=== PATIENT | female | born 1960 | race Caucasian/White ===

== ENCOUNTER 2022-08-31 16:04 | Emergency (ER) | payer BC, SELFPAY ==
[2022-08-31 16:18] VITALS: BP 135/64; PULSE 92; RESP 18; TEMP 37.6; O2SAT 98
[2022-08-31 17:44] LABS: Add Urine Microscopic? YES; Appearance Urine Cloudy (Clear); Bilirubin Urine Negative (Negative); Blood Urine 3+ (Negative); Color Urine Red (Yellow); Glucose Urine UA Negative (Negative); Ketones Urine Negative (Negative); Leukocyte Esterase Ur 1+ LEU/UL (Negative); Nitrate Urine Negative (Negative); Protein Urine 3+ mg/dL (Negative); Urobilinogen Urine 0.2 mg/dL (<2.0)
[2022-08-31 17:57] LABS: Mucus Urine Rare /lpf; RBC Urine >75 /hpf (0-2); WBC Urine >75 /hpf
--- NOTE | 2022-08-31 18:23 | WPDEDEXPGENP ---
HPI - General Ped General Chief complaint: Urogenital-Female Stated complaint: left back pain Time Seen by Provider: 08/31/22 16:54 History of Present Illness HPI narrative: 62-year-old female history of interstitial cystitis presents to the emergency room for evaluation of dysuria, suprapubic pain, and urinary urgency and frequency, left flank pain. Patient states that she noticed gross hematuria earlier today, and left flank pain. Patient states that this is different than her interstitial cystitis. Patient denies fever, denies tachycardia Related Data Allergies Allergy/AdvReac Type Severity Reaction Status Date / Time lamotrigine [From Lamictal] Allergy Hives Verified 08/31/22 17:37 Penicillins Allergy Hives Verified 08/31/22 17:37 Pediatric Review of Systems Review of Systems: CONSTITUTIONAL: Denies fever, chills, or sweats. EYES: Denies visual changes, redness, or discharge. ENT: Denies rhinorrhea, congestion, sore throat, or otalgia. CARDIOVASCULAR: Denies chest pain, palpitations, or edema. RESPIRATORY: Denies cough or dyspnea. GASTROINTESTINAL: Denies abdominal pain, nausea, vomiting GENITOURINARY: Reports dysuria and hematuria. SKIN: Denies rash or itching. MUSCULOSKELETAL: Reports left lower back pain NEUROLOGIC: Denies headache, numbness, dizziness, or weakness. PSYCHIATRIC: Denies anxiety or depression. Pediatric Exam Narrative: Physical exam: GENERAL: Well-appearing, well-nourished, no physical limitations, and in no acute distress. HEAD: Normocephalic, atraumatic. EYES: Conjunctivae normal, PERRLA and EOMI. CHEST: Clear to auscultation. No respiratory distress. No wheezes rales or rhonchi. HEART: Regular rate and rhythm. No murmur heard. Normal peripheral pulses. ABDOMEN: Soft, suprapubic tenderness, nondistended, normal active bowel sounds. : Normal external male/female exam. BACK: Left CVA tenderness EXTREMITIES: Normal range of motion. No edema. No clubbing or cyanosis SKIN: Warm, dry, no rash. No noted wounds NEURO: No focal deficits. Alert and oriented x3. MAEW. CN's II-XI intact bilaterally, normal gait PSYCH: Cooperative. Normal mood and affect. Course Vital Signs Vital signs: Vital Signs Temperature 37.6 C 08/31/22 16:18 Pulse Rate 92 08/31/22 16:18 Respiratory Rate 18 08/31/22 16:18 Blood Pressure 135/64 08/31/22 16:18 Pulse Oximetry 98 08/31/22 16:18 Temperature 37.6 C 08/31/22 16:18 Pulse Rate 92 08/31/22 16:18 Respiratory Rate 18 08/31/22 16:18 Blood Pressure 135/64 08/31/22 16:18 Pulse Oximetry 98 08/31/22 16:18 Medical Decision Making Vital Signs Vital Signs: Vital Signs Temperature 37.6 C 08/31/22 16:18 Pulse Rate 92 08/31/22 16:18 Respiratory Rate 18 08/31/22 16:18 Blood Pressure 135/64 08/31/22 16:18 Pulse Oximetry 98 08/31/22 16:18 Temperature 37.6 C 08/31/22 16:18 Pulse Rate 92 08/31/22 16:18 Respiratory Rate 18 08/31/22 16:18 Blood Pressure 135/64 08/31/22 16:18 Pulse Oximetry 98 08/31/22 16:18 Lab Data Labs: Lab Results 08/31/22 Range/Units 17:34 Urine Color Red H (Yellow) Urine Appearance Cloudy H (Clear) Urine pH 6.0 (5.0-9.0) Ur Specific [place] 1.020 (1.001-1.035) Urine Protein 3+ H (Negative) mg/dL Urine Glucose (UA) Negative (Negative) mg/dL Urine Ketones Negative (Negative) mg/dL Ur Blood (Man) 3+ H (Negative) Urine Nitrate Negative (Negative) Urine Bilirubin Negative (Negative) Urine Urobilinogen 0.2 (<2.0) mg/dL Leukocyte Esterase Rfl 1+ H (Negative) NEFTALI/UL Urine RBC >75 H (0-2) /hpf Urine WBC >75 H /hpf Urine Mucus Rare /lpf Urine Characteristics Cloudy Discharge Plan Discharge Clinical Impression: Urinary tract infection Patient Disposition: Home, Self-Care Condition: Stable Instructions: Antibiotic Form, Urinary Tract Infectio
[2022-08-31] MEDS: cefTRIAXone 1 GM VIAL IM (18:47)
[2022-08-31] MEDS: LIDOCAINE HCL 1% LOCAL INJ 20 ML VIAL (18:48)
== END 2022-08-31 19:04 | disposition home or self-care (01) ==
PROVIDERS: Emergency Provider Nurse Practitioner Family
DX: N39.0 Urinary tract infection, site not specified (principal)
CPT/HCPCS: 81001; 87077; 87086; 87147; 87181; 87186; 96372; 99283; J0696

== ENCOUNTER 2022-09-15 08:17 | Outpatient (CLI) | payer BC, SELFPAY ==
--- NOTE | ~2022-09-15 | CT_ITS ---
EXAMINATION: CT abdomen pelvis wo/w con DATE: 09/15/2022 09:46 INDICATION: Intermittent gross hematuria TECHNIQUE: Computed tomography (CT) of the abdomen and pelvis was performed without intravenous contr ast. CT of the abdomen and pelvis was then performed with a total of 130 mL Omnipaque 350 intravenous contrast using a double-bolus technique for simultaneous opacification of the renal parenchyma and r enal collecting system. The dose-length product (DLP) was 728.87 mGy-cm. Automated exposure control a nd iterative reconstruction technique were employed. COMPARISON: None FINDINGS: Minimal dependent atelectasis is present in the lung bases. The heart size is normal. Small cysts of the liver measure up to 3 mm in the left hepatic lobe. The spleen, pancreas, gallbladder, a nd adrenal glands are normal. The kidneys are unremarkable. No stones are identified in the kidneys, ureters, or bladder. There is no hydronephrosis or hydroureter. No suspicious renal or urothelial les ion identified. The right ureter is not well opacified beyond its overlap with the right iliac vessel s however no mass is identified. No pathologically enlarged abdominal or pelvic lymph nodes are ident ified. There is no free intraperitoneal gas or evidence of bowel obstruction. There is calcified athe rosclerosis of the aorta and many of the other arteries. Colonic diverticulosis is present without ev idence of diverticulitis. There is a moderate volume of formed stool in the nondistended terminal ile um, consistent with slow transit. IMPRESSION: 1. No CT correlate for the patient's symptoms. Reviewed, dictated and finalized at location A. [employer]
--- NOTE | ~2022-09-15 | XR_ITS ---
Supine views of the abdomen Clinical history: Hematuria, flank pain Findings: Bowel gas pattern is nonspecific. No evidence for obstruction or free air. No abnormal mass lesion or calcification is seen. Osseous structures are intact. Impression: No significant abnormality is seen. Reviewed, dictated and finalized at location [] TE BLACK BELT Impression: No significant abnormality is seen.
[2022-09-15 09:25] LABS: Estimated Glomerular Filt Rate > 60
== END 2022-09-15 08:18 | disposition home or self-care (01) ==
PROVIDERS: Visit Provider Nurse Practitioner Family
DX: R31.0 Gross hematuria (principal)
CPT/HCPCS: 74018; 74178; Q9967

== ENCOUNTER 2024-01-05 00:02 | Emergency (ER) | payer BC, SELFPAY ==
[2024-01-05] VITALS (8 sets, daily range): BP systolic 109–115; BP diastolic 73–78; PULSE 85–102; RESP 14–18; TEMP 36.3; O2SAT 98–100
--- NOTE | ~2024-01-05 | XR_ITS ---
Left foot Technique: AP, oblique, and lateral views were obtained. Clinical History: Pain Findings: There is an acute fractures of the proximal shaft of the fifth proximal phalanx. Fracture i s essentially nondisplaced. No definite intra-articular extension.. Joint spaces are preserved withou t erosive or degenerative change. Soft tissues are unremarkable. Impression: Acute transverse fracture the proximal shaft of the fifth proximal phalanx. Reviewed, dictated and finalized at location M. Impression: Acute transverse fracture the proximal shaft of the fifth proximal phalanx.
--- NOTE | ~2024-01-05 | CT_ITS ---
Noncontrast CT scan of the cervical spine Technique: Multiple contiguous axial [address] images of the cervical spine were obtained and rec onstructed in 2D sagittal and coronal planes on the acquisition scanner. Dose reduction technique was used on this scan by utilizing automated exposure control, adjustment of the mA and/or kV according to patient size. The dose-length product (DLP) was 140.59 mGy-cm. Clinical History: Pain Findings: No fractures or dislocations. Scattered mild facet joint degenerative changes are present. The intervertebral disc spaces are preserved. No prevertebral soft tissue swelling. Impression: No fracture or subluxation of the cervical spine. Reviewed, dictated and finalized at location . Impression: No fracture or subluxation of the cervical spine.
--- NOTE | ~2024-01-05 | XR_ITS ---
Right elbow Technique: AP, oblique, and lateral views were obtained. Clinical History: Pain Findings: No acute fracture or dislocation is seen. Osseous alignment is anatomic. Joint spaces are p reserved. There is no displacement of the fat pads, and soft tissues are unremarkable. Impression: Unremarkable radiographs. Reviewed, dictated and finalized at location . Impression: Unremarkable radiographs.
--- NOTE | ~2024-01-05 | CT_ITS ---
Non-contrast Head CT History: Status post fall Technique: Axial non-contrast imaging of the brain was performed. Dose reduction technique was used on this scan by utilizing automated exposure control and iterative reconstruction technique. The dose -length product (DLP) was 605.33 mGy-cm. Findings: There is no evidence of intracranial hemorrhage, mass lesion, or acute infarct. Brain par enchyma appears normal. The ventricles and subarachnoid spaces are normal in size. The calvarium ap pears normal. The visualized paranasal sinuses and mastoid air cells are clear. Impression: No significant abnormality seen. Reviewed, dictated and finalized at location . Impression: No significant abnormality seen.
--- NOTE | 2024-01-05 00:07 | ECG_ITS ---
Measurements Intervals Leo Rate: 99 P: 61 NJ: 145 QRS: 62 QRSD: 86 T: 40 QT: 362 QTc: 465 Interpretive Statements SINUS RHYTHM POSSIBLE LEFT ATRIAL ENLARGEMENT [-0.1mV P WAVE IN V1/V2] NONSPECIFIC ST AND T-WAVE ABNORMALITY NO PREVIOUS ECG AVAILABLE FOR COMPARISON Electronically Signed On 01-05-2024 11:03:07 CDT by Carol Wesley M.D.
--- NOTE | 2024-01-05 00:13 | PC.NURSE ---
Patient is now A&Ox4 states it is January 2024 and Kana Vazquez is the President. Patient also c/o right elbow pain possibly from fall from syncopal episode.
[2024-01-05 00:27] LABS: Basophils Percent Auto 0.5 % (0.2-1.2); Eosinophils Absolute Auto 0.1 K/mm3 (0-0.3); Eosinophils Percent Auto 0.8 % (0-4.4); Hematocrit 44.4 % (37.0-47.0); Immature Granulocyte Absolute 0.03 K/mm3 (0.00-0.031); Immature Granulocyte Percent A 0.4 % (0-0.5); Lymphocytes Absolute Auto 1.91 K/mm3 (0.9-3.2); Lymphocytes Percent Auto 22.6 % (18.3-44.2); Mean Corpuscular HGB Conc 31.5 g/dl (32-36); Mean Corpuscular Hemoglobin 25.9 pg (26-34); Mean Corpuscular Volume 82.1 fl (80-100); Mean Platelet Volume 12.2 fl (7.4-10.4); Monocytes Absolute Auto 0.9 K/mm3 (0.1-0.6); Monocytes Percent Auto 10.1 % (2.6-8.5); Neutrophils Absolute Auto 5.6 K/mm3 (1.3-6.7); Neutrophils Percent Auto 65.6 % (45.5-73.1); Platelet Count Result 194 k/mm3 (150-375); Red Blood Count 5.41 M/mm3 (4.2-5.4); Red Cell Distribution Width 14.2 % (11.5-14.5); White Blood Count 8.5 K/mm3 (4.5-10.0)
[2024-01-05 00:43] LABS: Alanine Aminotransferase 16 U/L (6-35); Albumin Level 4.5 g/dL (3.5-5.1); Alkaline Phosphatase 98 U/L (38-126); Anion Gap 10 mmol/L (4-12); Aspartate Amino Transferase 23 U/L (14-36); Bilirubin,Total 0.6 mg/dL (0.2-1.3); Blood Urea Nitrogen 7 mg/dL (7-17); Calcium 9.4 mg/dL (8.4-10.2); Carbon Dioxide 20 mmol/L (22-30); Chloride 103 mmol/L (98-107); Estimated CRCL calculation 61 ml/min; Estimated Glomerular Filt Rate > 60; Glucose 137 mg/dL (65-110); Potassium 2.6 mmol/L (3.4-5.0); Sodium 133 mmol/L (137-145)
[2024-01-05] MEDS: SODIUM CHLORIDE 0.9% IV 1,000 ML 999 ML IV CONT (01:00)
[2024-01-05] MEDS: POTASSIUM CHLORIDE 20 MEQ PACKET (FOR LIQUID) 40 MEQ PO (01:00)
--- NOTE | 2024-01-05 01:22 | PC.NURSE ---
Per patient she cannot drink the potassium powder drink due to it being too sweet. Per EDP Dr. Mzt give 80meq tablet PO
[2024-01-05] MEDS: ONDANSETRON INJ 4 MG/2 ML VIAL IV PUSH (01:24)
[2024-01-05] MEDS: POTASSIUM CHLORIDE 20 MEQ ER TABLET 40 MEQ PO ×2 (01:25)
--- NOTE | 2024-01-05 01:33 | ED.DIZZY ---
HPI - Dizziness General Chief Complaint: Syncope Stated Complaint: syncope Time Seen by Provider: 01/05/24 00:46 History of Present Illness HPI Narrative: Patient is a 63-year-old female who presents the emergency department this evening after syncopal episode which occurred at home. Patient is currently undergoing colonoscopy prep and has her appointment for her diagnostic colonoscopy this morning. Patient states that yesterday she had nothing to eat all day and was getting up from a couch heading to the bathroom which she had a syncopal episode and fell to the floor in her living room. Patient admits that she did hit her head, and states that she has some mild pain to the right side of her scalp but denies any severe headache, any focal weakness, dizziness, lightheadedness, numbness and tingling. Patient currently denies any chest pain or shortness of breath, admits to feeling nauseous but denies any vomiting episodes and is currently denies any abdominal pain. There are no other modifying, alleviating, or precipitating factors. Related Data Allergies Allergy/AdvReac Type Severity Reaction Status Date / Time lamotrigine [From Lamictal] Allergy Hives Verified 08/31/22 17:37 Penicillins Allergy Hives Verified 08/31/22 17:37 Review of Systems Review of Systems: All systems are reviewed and are negative unless stated otherwise in the HPI. Exam Narrative: General: Alert, awake, afebrile, in no acute distress. HEENT: PERRL, no rhinorrhea, no post nasal drip, oropharynx clear. Neck: Trachea midline, no JVD, no lymphadenopathy. Cardiovascular: Regular rate and rhythm, no murmurs, rubs or gallops, no peripheral edema. Respiratory: Clear to auscultation bilaterally, no tachypnea, no wheezing, no rhonchi, no rubs, no respiratory distress. Abdomen: Soft, nontender, nondistended, no rebound, no guarding, no peritoneal signs. Musculoskeletal: Ecchymosis and swelling to the left 4th toe and tenderness to palpation at the base of the left 5th toe. 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 Skin: No rashes or petechia, no signs of infection. Psychiatric: Alert and oriented, normal behavior and judgment for situation. Neurological: Alert and oriented to person, place, and time. Follows all commands. No focal deficits, speech is clear and fluent. Course Vital Signs Vital signs: Vital Signs Temperature 97.4 F L 01/05/24 00:01 Pulse Rate 101 H 01/05/24 00:01 Respiratory Rate 14 01/05/24 00:01 Blood Pressure 109/75 01/05/24 00:01 Pulse Oximetry 98 01/05/24 00:01 Oxygen Delivery Room Air 01/05/24 00:01 Temperature 97.4 F L 01/05/24 00:01 Pulse Rate 98 01/05/24 02:03 Respiratory Rate 18 01/05/24 02:03 Blood Pressure 113/78 01/05/24 02:03 Pulse Oximetry 100 01/05/24 02:03 Oxygen Delivery Room Air 01/05/24 00:11 MDM - Dizziness MDM Narrative Medical decision making narrative: The patient was evaluated by myself in the emergency department. History is obtained from patient who is an independent historian and physical exam was performed. External medical records were reviewed at this time. IV was established and pertinent tests were ordered. Patient was administered a 1 L IV fluid bolus with normal saline. EKG was obtained which revealed sinus rhythm at a rate of 99 beats per minute. No ST changes or evidence of acute ischemia. EKG was independently interpreted by me and is currently pending official cardiology read. Laboratory results obtained revealing a potassium level of 2.6, otherwise unremarkable. At this time, patient was administered 80 mEq of oral potassium. Imaging studies obtained included a CT brain and cervical spine without IV contrast which was independently interpreted by revealing no acute process, which is pending final radiology interpretation. left foot and right elbow x-rays were also obtained and reviewed by me ford
== END 2024-01-05 03:19 | disposition home or self-care (01) ==
PROVIDERS: Physician Assistant; Emergency Provider Emergency Medicine; PCP Family Medicine Sports Medicine
DX: R55 Syncope and collapse (principal); S09.90XA Unspecified injury of head, initial encounter; S92.512A Displaced fracture of proximal phalanx of left lesser toe(s), initial encounter for closed fracture; E87.6 Hypokalemia; R94.31 Abnormal electrocardiogram [ECG] [EKG]; W18.39XA Other fall on same level, initial encounter
CPT/HCPCS: 36415; 70450; 72125; 73080; 73630; 80053; 83735; 85025; 93005; 96361; 96374; 99284; A9270; J2405; J7030